=== PATIENT | female | born 2000 | race Caucasian/White ===

== ENCOUNTER 2021-06-06 19:45 | Emergency (ER) | payer MEDICAID ==
[~2021-06-06] VITALS: Ht 167.6 cm; Wt 53.6 kg
[2021-06-06 20:13] VITALS: BP 100/64
== END 2021-06-06 20:30 | disposition home or self-care (01) ==
LOC: ER 19:46
DX: R51.9 Headache, unspecified (principal); Z20.822 Contact with and (suspected) exposure to COVID-19
CPT/HCPCS: 87635; 99283; C9803